=== PATIENT | female | born 1990 | race Caucasian/White ===

== ENCOUNTER 2018-05-01 14:26 | Emergency (ER) | payer SELFPAY ==
[~2018-05-01] VITALS: Ht 180.3 cm; Wt 129.3 kg
== END 2018-05-01 14:59 | disposition home or self-care (01) ==
LOC: ER 14:33
DX: M54.2 Cervicalgia (principal); Z98.84 Bariatric surgery status; V49.59XA Passenger injured in collision with other motor vehicles in traffic accident, initial encounter; Y93.89 Activity, other specified; Y92.410 Unspecified street and highway as the place of occurrence of the external cause; Y99.8 Other external cause status
CPT/HCPCS: 99283; A4606